=== PATIENT | female | born 1995 | race Caucasian/White ===

== ENCOUNTER 2020-03-01 22:20 | Emergency (ER) | payer BC ==
[~2020-03-01] VITALS: Ht 170.2 cm; Wt 86.2 kg
[2020-03-01 22:32] VITALS: BP 126/82
--- NOTE | 2020-03-01 22:35 | NUR ---
triaged and waiting in tent.
[2020-03-01] MEDS ORDERED: AZITHROMYCIN 250 MG TAB PO ONE ×2 (22:40→22:45)
[2020-03-01] MEDS ORDERED: NACL 0.9% 1,000 ML IV ONE ×2 (22:40→22:45)
[2020-03-01] MEDS ORDERED: IBUPROFEN 800 MG TAB PO ONE ×2 (22:40→22:45)
[2020-03-01] MEDS ORDERED: ACETAMINOPHEN EXTRA STRENGTH 500 MG TAB PO ONE ×2 (22:40→22:45)
[2020-03-01] MEDS ORDERED: ALBUTEROL HFA MDI 90 MCG/ACTUATION 8 GM INH ONE ×2 (22:40→22:45)
[2020-03-01] MEDS ORDERED: DEXAMETHASONE 4 MG/ML VIAL IVP ONE (22:40)
[2020-03-01] MEDS ORDERED: DEXAMETHASONE 10 MG/ML VIAL IVP ONE (22:45)
--- NOTE | 2020-03-01 22:49 | NUR ---
Respiratory Therapist at bedside for respiratory intervention.
[2020-03-01] MEDS ORDERED: LIDOCAINE MPF 1% 5 ML ONE (22:52)
[2020-03-01] MEDS ORDERED: cefTRIAXone 1,000 MG VIAL ONE (22:52)
[2020-03-01] MEDS ORDERED: cefTRIAXone 1,000 MG in LIDOCAINE MPF 1% 2.1 ML IM ONE (22:55)
[2020-03-01] MEDS ORDERED: DEXAMETHASONE 4 MG/ML VIAL IM ONE (22:55)
--- NOTE | 2020-03-01 23:13 | NUR ---
Vivian, PCR, flu swab collected.
--- NOTE | 2020-03-01 23:50 | NUR ---
Patient discharged with v/s stable. Written and verbal after care instructions given and explained. Patient alert, oriented and verbalized understanding of instructions. Ambulatory with steady gait. All questions addressed prior to discharge. ID band removed. Patient advised to follow up with PMD. Rx of AUGMENTIN, VETOLIN, AZITHROMYCIN, PREDNISONE given. Patient educated on indication of medication including possible reaction and side effects. Opportunity to ask questions provided and answered.
[2020-03-02 00:11] VITALS: BP 122/88
== END 2020-03-01 23:50 | disposition home or self-care (01) ==
LOC: MED 22:20
DX: J18.1 Lobar pneumonia, unspecified organism (principal); Z20.828 Contact with and (suspected) exposure to other viral communicable diseases
CPT/HCPCS: 71045; 87426; 87804; 96372; 99284; J0696; J1100; J2001; J3535; U0003